=== PATIENT | male | born 1990 | race Caucasian/White ===

== ENCOUNTER 2017-02-14 23:07 | Emergency (ER) | payer OTHER ==
[~2017-02-14] VITALS: Ht 210.8 cm; Wt 60.9 kg
[~2017-02-14 23:07] MED LIST: ADDERALL20 MG PO; ALPRAZOLAM0.5 MG PO; SEROQUEL100 MG PO; SEROQUEL200 MG PO
[2017-02-15] MEDS ORDERED: ATARAX,VISTARIL25 MG PO (00:15)
[2017-02-15] MEDS ORDERED: PROMETHAZINE HC25 M1 PO (00:15)
[2017-02-15] MEDS ORDERED: SEROQUEL300 MG PO (00:15)
[2017-02-15] MEDS ORDERED: DEPAKOTE500 MG PO (00:15)
[2017-02-15 00:35] VITALS: BP 105/69
== END 2017-02-15 00:37 | disposition home or self-care (01) ==
LOC: EXP 23:07 → EME 23:07 → EXP 02-15 00:37
DX: R11.2 Nausea with vomiting, unspecified (principal); R30.0 Dysuria; F41.9 Anxiety disorder, unspecified; R36.9 Urethral discharge, unspecified; Z88.1 Allergy status to other antibiotic agents; F17.200 Nicotine dependence, unspecified, uncomplicated
CPT/HCPCS: 99281; 99283; Q0177

== ENCOUNTER 2017-02-22 03:06 | Emergency (ER) | payer OTHER ==
[~2017-02-22] VITALS: Ht 185.4 cm; Wt 61.6 kg
[~2017-02-22 03:06] MED LIST changes: +ATARAX,VISTARIL25 MG PO; +DEPAKOTE500 MG PO; +PROMETHAZINE HC25 M1 PO; +SEROQUEL300 MG PO
[2017-02-22 03:57] LABS: COLOR BLOODY ((YELLOW))
[2017-02-22 03:58] LABS: BILIRUBIN MODERATE; BLOOD LARGE; GLUCOSE (STRIP) NEGATIVE; KETONES TRACE
[2017-02-22 03:59] LABS: ADD MIUA? YES; LEUKOCYTES MODERATE; PROTEIN (STRIP) 30; UROBILINOGEN 0.2 MG/DL (0.2-1.0)
[2017-02-22 04:00] LABS: NITRITE NEGATIVE; RED BLOOD CELLS TNTC /HPF (0-5); UCUL ADDED? YES
[2017-02-22 04:03] LABS: HEMATOCRIT 41.2 % (38.0-50.0); MCH 30.3 PG (29.0-34.0); MCHC 32.8 G/DL (30.0-36.0); MCV 92.6 FL (86-99); MEAN PLAT.VOLUME 9.3 uM^3 (9.0-12.4); PLATELET COUNT 222 K/uL (156-360); RBC DIS.WIDTH-CV 11.9 % (11.8-14.6); RBC DIS.WIDTH-SD 40.4 % (39-53); RED BLOOD COUNT 4.45 M/uL (4.00-5.50)
[2017-02-22 04:11] LABS: ICTOTEST NEGATIVE
[2017-02-22 04:14] LABS: CHLORIDE 106 mEq/L (99-109); POTASSIUM 4.1 mEq/L (3.7-5.4); SODIUM 141 mEq/L (136-147)
[2017-02-22 04:15] LABS: GLUCOSE 94 mg/dL (70-99)
[2017-02-22 04:17] LABS: ANION GAP 9 MEQ/L (2-14)
[2017-02-22 04:19] LABS: GFR ESTIMATE (CALCULATED) > 59 mL/min/
[2017-02-22 04:20] LABS: UREA NITROGEN (BUN) 7 mg/dL (9-23)
[2017-02-22] MEDS ORDERED: CIPROFLOXA500 MG/5 M PO (05:05)
[2017-02-22 05:07] LABS: CREATINE KINASE 77 IU/L (1-294)
[2017-02-22 05:16] VITALS: BP 115/65
== END 2017-02-22 05:17 | disposition home or self-care (01) ==
LOC: EME 03:06
PROVIDERS: Emergency Medicine
DX: N30.01 Acute cystitis with hematuria (principal); R05 Cough; F17.200 Nicotine dependence, unspecified, uncomplicated; Z88.1 Allergy status to other antibiotic agents
CPT/HCPCS: 71020; 74176; 80048; 81003; 82550; 85027; 87086; 99281; 99284

== ENCOUNTER 2017-03-23 15:54 | Emergency (ER) | payer OTHER ==
[~2017-03-23] VITALS: Ht 185.4 cm; Wt 60.9 kg
[~2017-03-23 15:54] MED LIST changes: +CIPROFLOXA500 MG/5 M PO
[2017-03-23 15:58] VITALS: BP 112/84
== END 2017-03-23 16:46 | disposition left against medical advice (07) ==
LOC: EME 15:54
DX: F41.9 Anxiety disorder, unspecified (principal); F20.9 Schizophrenia, unspecified; Z59.0 Homelessness; Z88.0 Allergy status to penicillin; F17.200 Nicotine dependence, unspecified, uncomplicated
CPT/HCPCS: 99281; 99282

== ENCOUNTER 2017-03-24 13:36 | Emergency (ER) | payer OTHER ==
[~2017-03-24] VITALS: Ht 185.4 cm; Wt 64.1 kg
[2017-03-24 14:26] LABS: HEMATOCRIT 43.5 % (38.0-50.0); MCH 29.6 PG (29.0-34.0); MCHC 33.1 G/DL (30.0-36.0); MCV 89.3 FL (86-99); MEAN PLAT.VOLUME 9.6 uM^3 (9.0-12.4); PLATELET COUNT 210 K/uL (156-360); RBC DIS.WIDTH-CV 12.3 % (11.8-14.6); RBC DIS.WIDTH-SD 40.5 % (39-53); RED BLOOD COUNT 4.87 M/uL (4.00-5.50); WHITE BLOOD COUNT 5.2 K/uL (4.1-10.2)
[2017-03-24 14:34] LABS: CHLORIDE 107 mEq/L (99-109); POTASSIUM 3.1 mEq/L (3.7-5.4); SODIUM 142 mEq/L (136-147)
[2017-03-24 14:36] LABS: GLUCOSE 81 mg/dL (70-99)
[2017-03-24 14:37] LABS: ANION GAP 17 MEQ/L (2-14)
[2017-03-24 14:39] LABS: SERUM ETHYL ALCOHOL 181 mg/dL
[2017-03-24 14:40] LABS: GFR ESTIMATE (CALCULATED) > 59 mL/min/
[2017-03-24 14:41] LABS: UREA NITROGEN (BUN) 9 mg/dL (9-23)
[2017-03-24 15:27] LABS: THC CANNABINOIDS PRESUMPTIVE POSITIVE (50 ng/mL)
[2017-03-24 15:28] LABS: ADD MEDTOX COMMENT Y; AMPHETAMINE NEGATIVE (500 ng/mL); BARBITURATES NEGATIVE (200 ng/mL); BENZODIAZEPINES NEGATIVE (150 ng/mL); COCAINE NEGATIVE (150 ng/mL); INTERNAL CONTROLS VALID? YES; METHADONE NEGATIVE (200 ng/mL); METHAMPHETAMINE NEGATIVE (500 ng/mL); OPIATES (MORPHINE) NEGATIVE (100 ng/mL); OXYCODONE NEGATIVE (100 ng/mL); PHENCYCLIDINE NEGATIVE (25 ng/mL); PROPOXYPHENE NEGATIVE (300 ng/mL); TRICYCLIC ANTIDEPRESSANTS NEGATIVE (300 ng/mL)
[2017-03-24 18:45] VITALS: BP 126/86
== END 2017-03-24 18:58 | disposition home or self-care (01) ==
LOC: EME 13:36
PROVIDERS: Emergency Medicine
DX: F32.9 Major depressive disorder, single episode, unspecified (principal); F10.129 Alcohol abuse with intoxication, unspecified; Y90.6 Blood alcohol level of 120-199 mg/100 ml; F60.2 Antisocial personality disorder; F43.10 Post-traumatic stress disorder, unspecified; Z04.6 Encounter for general psychiatric examination, requested by authority; Z88.8 Allergy status to other drugs, medicaments and biological substances; F17.200 Nicotine dependence, unspecified, uncomplicated
CPT/HCPCS: 80048; 84999; 85027; 90837; 99281; 99284; G0480

== ENCOUNTER 2017-06-12 00:17 | Emergency (ER) | payer OTHER ==
[~2017-06-12] VITALS: Ht 185.4 cm; Wt 61.7 kg
[2017-06-12 00:50] LABS: HEMATOCRIT 42.9 % (38.0-50.0); MCHC 32.6 G/DL (30.0-36.0); MCV 95.1 FL (86-99); RED BLOOD COUNT 4.51 M/uL (4.00-5.50); WHITE BLOOD COUNT 6.7 K/uL (4.1-10.2)
[2017-06-12 00:59] LABS: CHLORIDE 104 mEq/L (99-109); POTASSIUM 3.8 mEq/L (3.7-5.4); SODIUM 141 mEq/L (136-147)
[2017-06-12 01:01] LABS: GLUCOSE 81 mg/dL (70-99)
[2017-06-12 01:02] LABS: ANION GAP 9 MEQ/L (2-14)
[2017-06-12 01:04] LABS: SERUM ETHYL ALCOHOL < 10 mg/dL
[2017-06-12 01:05] LABS: GFR ESTIMATE (CALCULATED) > 59 mL/min/ (58.99-99999)
[2017-06-12 01:06] LABS: UREA NITROGEN (BUN) 10 mg/dL (9-23)
[2017-06-12 01:26] LABS: AMPHETAMINE NEGATIVE (500 ng/mL); BARBITURATES NEGATIVE (200 ng/mL); BENZODIAZEPINES PRESUMPTIVE POSITIVE (150 ng/mL); COCAINE NEGATIVE (150 ng/mL); INTERNAL CONTROLS VALID? YES; METHADONE NEGATIVE (200 ng/mL); METHAMPHETAMINE NEGATIVE (500 ng/mL); OPIATES (MORPHINE) NEGATIVE (100 ng/mL); OXYCODONE NEGATIVE (100 ng/mL); PHENCYCLIDINE NEGATIVE (25 ng/mL); PROPOXYPHENE NEGATIVE (300 ng/mL); THC CANNABINOIDS PRESUMPTIVE POSITIVE (50 ng/mL); TRICYCLIC ANTIDEPRESSANTS NEGATIVE (300 ng/mL)
[2017-06-12 01:27] LABS: ADD MEDTOX COMMENT Y
[2017-06-12 01:35] LABS: MEAN PLAT.VOLUME 10.2 uM^3 (9.0-12.4); PLAT.SUFFICIENCY ADEQUATE; PLATELET COUNT 238 K/uL (156-360)
[2017-06-12 04:55] VITALS: BP 100/58
[2017-06-12 05:16] LABS: BENZODIAZEPINES, URINE SCREEN POSITIVE (200 ng/mL)
== END 2017-06-12 04:55 | disposition home or self-care (01) ==
LOC: EME 00:17
DX: F31.12 Bipolar disorder, current episode manic without psychotic features, moderate (principal); F20.9 Schizophrenia, unspecified; F63.9 Impulse disorder, unspecified; F43.10 Post-traumatic stress disorder, unspecified; Z88.0 Allergy status to penicillin; Z88.8 Allergy status to other drugs, medicaments and biological substances; F17.200 Nicotine dependence, unspecified, uncomplicated
CPT/HCPCS: 80048; 84999; 85027; 90839; G0480

== ENCOUNTER 2017-06-14 01:36 | Emergency (ER) | payer OTHER ==
[~2017-06-14] VITALS: Ht 185.4 cm; Wt 60.5 kg
[2017-06-14 04:20] LABS: EOSINOPHIL (%) 1.6 % (0-5); EOSINOPHIL COUNT 0.1 K/uL (0-0.3); HEMATOCRIT 39.2 % (38.0-50.0); IMMATURE GRANULOCYTE (%) 0.2 % (0.0-0.7); INSTRUMENT ABS NEUTROPHIL CT 3.3 K/uL; LYMPHOCYTE COUNT 1.8 K/uL (1.0-2.8); MCH 30.9 PG (29.0-34.0); MCHC 32.9 G/DL (30.0-36.0); MCV 93.8 FL (86-99); MEAN PLAT.VOLUME 10.3 uM^3 (9.0-12.4); MONOCYTE (%) 8.5 % (3-12); MONOCYTE COUNT 0.5 K/uL (0-0.8); NEUTROPHIL (%) 57.3 % (45-76); NEUTROPHIL COUNT 3.3 K/uL (1.8-6.4); PLATELET COUNT 209 K/uL (156-360); RBC DIS.WIDTH-CV 12.2 % (11.8-14.6); RBC DIS.WIDTH-SD 42.3 % (39-53); RED BLOOD COUNT 4.18 M/uL (4.00-5.50); WHITE BLOOD COUNT 5.8 K/uL (4.1-10.2)
[2017-06-14 04:32] LABS: CHLORIDE 105 mEq/L (99-109)
[2017-06-14 04:33] LABS: POTASSIUM 3.6 mEq/L (3.7-5.4); SODIUM 140 mEq/L (136-147)
[2017-06-14 04:36] LABS: ANION GAP 10 MEQ/L (2-14)
[2017-06-14 04:37] LABS: SERUM ETHYL ALCOHOL < 10 mg/dL
[2017-06-14 04:38] LABS: GFR ESTIMATE (CALCULATED) > 59 mL/min/ (58.99-99999)
[2017-06-14 04:39] LABS: GLUCOSE 120 mg/dL (70-99); UREA NITROGEN (BUN) 12 mg/dL (9-23)
[2017-06-14 08:05] LABS: COCAINE NEGATIVE (150 ng/mL); PHENCYCLIDINE NEGATIVE (25 ng/mL); THC CANNABINOIDS PRESUMPTIVE POSITIVE (50 ng/mL)
[2017-06-14 08:06] LABS: AMPHETAMINE PRESUMPTIVE POSITIVE (500 ng/mL); BARBITURATES NEGATIVE (200 ng/mL); BENZODIAZEPINES PRESUMPTIVE POSITIVE (150 ng/mL); INTERNAL CONTROLS VALID? YES; METHADONE NEGATIVE (200 ng/mL); METHAMPHETAMINE NEGATIVE (500 ng/mL); OPIATES (MORPHINE) NEGATIVE (100 ng/mL); OXYCODONE NEGATIVE (100 ng/mL); PROPOXYPHENE NEGATIVE (300 ng/mL); TRICYCLIC ANTIDEPRESSANTS NEGATIVE (300 ng/mL)
[2017-06-14 08:07] LABS: ADD MEDTOX COMMENT Y
[2017-06-14 08:40] LABS: BENZODIAZEPINES, URINE SCREEN POSITIVE (200 ng/mL)
[2017-06-14 10:25] VITALS: BP 110/68
== END 2017-06-14 10:26 | disposition home or self-care (01) ==
LOC: EME 01:36
PROVIDERS: Emergency Medicine
DX: F31.9 Bipolar disorder, unspecified (principal); F41.9 Anxiety disorder, unspecified; F20.9 Schizophrenia, unspecified; F43.20 Adjustment disorder, unspecified; F60.2 Antisocial personality disorder; F63.81 Intermittent explosive disorder; F12.20 Cannabis dependence, uncomplicated; F13.20 Sedative, hypnotic or anxiolytic dependence, uncomplicated; F43.10 Post-traumatic stress disorder, unspecified; F17.200 Nicotine dependence, unspecified, uncomplicated; Z88.0 Allergy status to penicillin; Z88.8 Allergy status to other drugs, medicaments and biological substances
CPT/HCPCS: 80048; 84999; 85025; 90839; 99281; 99283; G0480

== ENCOUNTER 2017-06-21 22:06 | Emergency (ER) | payer OTHER ==
[~2017-06-21] VITALS: Ht 185.4 cm; Wt 62.7 kg
[2017-06-21 22:13] VITALS: BP 112/76
[2017-06-21 23:35] LABS: HEMATOCRIT 41.2 % (38.0-50.0); HEMOGLOBIN 13.7 G/DL (12.5-16.6); MCH 31.4 PG (29.0-34.0); MCHC 33.3 G/DL (30.0-36.0); MCV 94.5 FL (86-99); RBC DIS.WIDTH-SD 42.4 % (39-53); RED BLOOD COUNT 4.36 M/uL (4.00-5.50); WHITE BLOOD COUNT 6.5 K/uL (4.1-10.2)
[2017-06-21 23:36] LABS: AMPHETAMINE NEGATIVE (500 ng/mL); BARBITURATES NEGATIVE (200 ng/mL); BENZODIAZEPINES NEGATIVE (150 ng/mL); BUPRENORPHINE NEGATIVE (10 ng/mL); COCAINE NEGATIVE (150 ng/mL); METHADONE NEGATIVE (200 ng/mL); METHAMPHETAMINE NEGATIVE (500 ng/mL); OPIATES (MORPHINE) NEGATIVE (100 ng/mL); OXYCODONE NEGATIVE (100 ng/mL); PHENCYCLIDINE NEGATIVE (25 ng/mL); PROPOXYPHENE NEGATIVE (300 ng/mL); THC CANNABINOIDS PRESUMPTIVE POSITIVE (50 ng/mL); TRICYCLIC ANTIDEPRESSANTS NEGATIVE (300 ng/mL)
[2017-06-21 23:46] LABS: ALBUMIN 4.1 g/dL (3.2-4.8); CHLORIDE 104 mEq/L (99-109); POTASSIUM 4.1 mEq/L (3.7-5.4); SODIUM 139 mEq/L (136-147)
[2017-06-21 23:48] LABS: GLUCOSE 69 mg/dL (70-99); TOTAL PROTEIN 6.6 g/dL (6.4-8.3)
[2017-06-21 23:50] LABS: TOTAL BILIRUBIN 0.2 mg/dL (0.0-1.0)
[2017-06-21 23:51] LABS: SERUM ETHYL ALCOHOL < 10 mg/dL
[2017-06-21 23:52] LABS: ALKALINE PHOSPHATASE 63 IU/L (3-129); CREATININE 0.8 mg/dL (0.6-1.3); GFR ESTIMATE (CALCULATED) > 59 mL/min/ (58.99-99999)
[2017-06-21 23:53] LABS: AST (GOT) 15 IU/L (2-34); UREA NITROGEN (BUN) 8 mg/dL (9-23)
[2017-06-21 23:55] LABS: ALT (GPT) 9 IU/L (3-49)
[2017-06-22 00:43] LABS: PLAT.SUFFICIENCY ADEQUATE; PLATELET COUNT 199 K/uL (156-360)
== END 2017-06-22 02:04 | disposition home or self-care (01) ==
LOC: EME 22:06
PROVIDERS: Emergency Medicine
DX: F20.9 Schizophrenia, unspecified (principal); F31.9 Bipolar disorder, unspecified; F60.2 Antisocial personality disorder; R45.6 Violent behavior; R45.850 Homicidal ideations; F12.90 Cannabis use, unspecified, uncomplicated; F17.200 Nicotine dependence, unspecified, uncomplicated
CPT/HCPCS: 80053; 84999; 85027; 90839; 99281; 99285; G0480

== ENCOUNTER 2017-06-22 02:29 | Emergency (ER) | payer OTHER ==
[~2017-06-22] VITALS: Ht 185.4 cm; Wt 62.8 kg
[2017-06-22 10:20] VITALS: BP 142/70
== END 2017-06-22 10:41 | disposition home or self-care (01) ==
LOC: EME 02:29
DX: F32.9 Major depressive disorder, single episode, unspecified (principal); R45.851 Suicidal ideations; F17.200 Nicotine dependence, unspecified, uncomplicated
CPT/HCPCS: 90832; 99281; 99285; J3486

== ENCOUNTER 2017-07-05 01:56 | Inpatient (IN) | payer OTHER ==
[~2017-07-05] VITALS: Ht 185.4 cm; Wt 67.2 kg
[2017-07-05 02:21] LABS: HEMATOCRIT 43.5 % (38.0-50.0); HEMOGLOBIN 14.5 G/DL (12.5-16.6); MCH 31.3 PG (29.0-34.0); MCHC 33.3 G/DL (30.0-36.0); RBC DIS.WIDTH-SD 41.9 % (39-53); RED BLOOD COUNT 4.63 M/uL (4.00-5.50); WHITE BLOOD COUNT 8.9 K/uL (4.1-10.2)
[2017-07-05 02:30] LABS: CHLORIDE 104 mEq/L (99-109); POTASSIUM 3.6 mEq/L (3.7-5.4); SODIUM 139 mEq/L (136-147)
[2017-07-05 02:32] LABS: GLUCOSE 108 mg/dL (70-99)
[2017-07-05 02:35] LABS: SERUM ETHYL ALCOHOL < 10 mg/dL
[2017-07-05 02:36] LABS: CREATININE 0.8 mg/dL (0.6-1.3); GFR ESTIMATE (CALCULATED) > 59 mL/min/ (58.99-99999)
[2017-07-05 02:37] LABS: UREA NITROGEN (BUN) 7 mg/dL (9-23)
[2017-07-05 03:20] LABS: PLAT.SUFFICIENCY ADEQUATE; PLATELET COUNT 240 K/uL (156-360)
[2017-07-05 05:12] VITALS: BP 89/64
[2017-07-05 07:26] VITALS: BP 95/53
[2017-07-05] MEDS ORDERED: VISTARIL50 MG PO (11:41)
[2017-07-05] MEDS ORDERED: DEPAKOTE ER500 MG PO (11:42)
[2017-07-05] MEDS ORDERED: DEPAKOTE ER250 MG PO (11:42)
[2017-07-05] MEDS ORDERED: SEROQUEL300 MG PO (11:42)
[2017-07-05] MEDS ORDERED: MIRALAX17 GM PO (11:43)
[2017-07-05] MEDS ORDERED: BUSPAR7.5 MG PO (11:43)
[2017-07-05] MEDS ORDERED: ADDERALL10 MG PO (11:44)
[2017-07-05 12:34] LABS: APPEARANCE CLEAR ((CLEAR)); BILIRUBIN NEGATIVE; BLOOD NEGATIVE; COLOR YELLOW ((YELLOW)); GLUCOSE (STRIP) NEGATIVE; KETONES NEGATIVE; LEUKOCYTES NEGATIVE; NITRITE NEGATIVE; PROTEIN (STRIP) NEGATIVE; SPECIFIC GRAVITY 1.018 (1.000-1.030); UCUL ADDED? NO; UROBILINOGEN 0.2 MG/DL (0.2-1.0)
[2017-07-05 16:04] VITALS: BP 130/85
[2017-07-05 16:27] LABS: BENZODIAZEPINES, URINE SCREEN Negative (200 ng/mL)
[2017-07-06 07:58] VITALS: BP 104/53
[2017-07-06] MEDS ORDERED: DEPAKOTE250 MG PO (09:37)
[2017-07-06] MEDS ORDERED: DEPAKOTE500 MG PO (09:37)
[2017-07-06] MEDS ORDERED: COGENTIN0.5 MG PO (09:38)
== END 2017-07-06 11:24 | disposition home or self-care (01) | DRG 885 ==
LOC: EME 01:56 → 1WEST 03:49 → EDOF 03:49 → ENRESERV 04:36 → 1WEST 04:42
PROVIDERS: Emergency Medicine
DX: F31.9 Bipolar disorder, unspecified (principal); F63.81 Intermittent explosive disorder; F60.2 Antisocial personality disorder; F12.20 Cannabis dependence, uncomplicated; F41.0 Panic disorder [episodic paroxysmal anxiety]; F20.9 Schizophrenia, unspecified; Z76.5 Malingerer [conscious simulation]; F43.10 Post-traumatic stress disorder, unspecified; F17.200 Nicotine dependence, unspecified, uncomplicated; R63.0 Anorexia; Z68.1 Body mass index [BMI] 19.9 or less, adult; Z65.3 Problems related to other legal circumstances; Z81.8 Family history of other mental and behavioral disorders
CPT/HCPCS: 80048; 80164; 80306 90; 81003; 85027; 90837; 97165 GO; 99281; 99285; G0480; Q0177

== ENCOUNTER 2017-07-16 13:44 | Emergency (ER) | payer OTHER ==
[~2017-07-16] VITALS: Ht 185.4 cm; Wt 58.4 kg
[~2017-07-16 13:44] MED LIST changes: +ADDERALL10 MG PO; +BUSPAR7.5 MG PO; +COGENTIN0.5 MG PO; +DEPAKOTE ER250 MG PO; +DEPAKOTE ER500 MG PO; +DEPAKOTE250 MG PO; +MIRALAX17 GM PO; +VISTARIL50 MG PO
[2017-07-16 14:57] LABS: BASOPHIL (%) 0.2 % (0-1); EOSINOPHIL (%) 0.1 % (0-5); HEMATOCRIT 41.8 % (38.0-50.0); IMMATURE GRANULOCYTE (%) 0.3 % (0.0-0.7); LYMPHOCYTE COUNT 0.9 K/uL (1.0-2.8); MCH 30.9 PG (29.0-34.0); MCHC 33.5 G/DL (30.0-36.0); MCV 92.3 FL (86-99); MONOCYTE (%) 6.8 % (3-12); MONOCYTE COUNT 0.6 K/uL (0-0.8); NEUTROPHIL (%) 82.6 % (45-76); NEUTROPHIL COUNT 7.1 K/uL (1.8-6.4); PLATELET COUNT 265 K/uL (156-360); RBC DIS.WIDTH-CV 11.8 % (11.8-14.6); RBC DIS.WIDTH-SD 40.3 % (39-53); RED BLOOD COUNT 4.53 M/uL (4.00-5.50); WHITE BLOOD COUNT 8.6 K/uL (4.1-10.2)
[2017-07-16 15:05] LABS: CHLORIDE 107 mEq/L (99-109); POTASSIUM 3.6 mEq/L (3.7-5.4); SODIUM 138 mEq/L (136-147)
[2017-07-16 15:07] LABS: GLUCOSE 100 mg/dL (70-99)
[2017-07-16 15:10] LABS: SERUM ETHYL ALCOHOL < 10 mg/dL
[2017-07-16 15:11] LABS: CREATININE 0.8 mg/dL (0.6-1.3); GFR ESTIMATE (CALCULATED) > 59 mL/min/ (58.99-99999)
[2017-07-16 15:12] LABS: UREA NITROGEN (BUN) 6 mg/dL (9-23)
[2017-07-16 15:53] VITALS: BP 121/70
== END 2017-07-16 15:58 | disposition home or self-care (01) ==
LOC: EME 13:44
PROVIDERS: Emergency Medicine
DX: F60.2 Antisocial personality disorder (principal); F31.9 Bipolar disorder, unspecified; F43.10 Post-traumatic stress disorder, unspecified; F20.9 Schizophrenia, unspecified; Z88.0 Allergy status to penicillin; F17.200 Nicotine dependence, unspecified, uncomplicated
CPT/HCPCS: 80048; 85025; 90837; G0480

== ENCOUNTER 2017-07-18 17:22 | Inpatient (IN) | payer OTHER ==
[~2017-07-18] VITALS: Ht 175.3 cm; Wt 56.2 kg
[2017-07-18 17:55] LABS: HEMATOCRIT 42.9 % (38.0-50.0); HEMOGLOBIN 14.2 G/DL (12.5-16.6); MCH 30.9 PG (29.0-34.0); MCHC 33.1 G/DL (30.0-36.0); MCV 93.3 FL (86-99); RBC DIS.WIDTH-CV 11.9 % (11.8-14.6); RBC DIS.WIDTH-SD 41.1 % (39-53); WHITE BLOOD COUNT 7.2 K/uL (4.1-10.2)
[2017-07-18 18:17] LABS: CHLORIDE 105 mEq/L (99-109); POTASSIUM 3.6 mEq/L (3.7-5.4); SODIUM 139 mEq/L (136-147)
[2017-07-18 18:19] LABS: GLUCOSE 73 mg/dL (70-99)
[2017-07-18 18:22] LABS: SERUM ETHYL ALCOHOL < 10 mg/dL
[2017-07-18 18:23] LABS: CREATININE 0.8 mg/dL (0.6-1.3); GFR ESTIMATE (CALCULATED) > 59 mL/min/ (58.99-99999)
[2017-07-18 18:25] LABS: UREA NITROGEN (BUN) 11 mg/dL (9-23)
[2017-07-18 18:26] LABS: ACETAMINOPHEN (TYLENOL) < 10 mcg/mL (10-30); SALICYLATE < 5.0 MG/DL (15-30)
[2017-07-18] MEDS ORDERED: MARINOL5 MG PO (18:38)
[2017-07-18] MEDS ORDERED: PROMETHAZINE HC25 M1 PO (18:39)
[2017-07-18 18:58] LABS: PLAT.SUFFICIENCY ADEQUATE
[2017-07-18 19:04] LABS: PLATELET COUNT 247 K/uL (156-360)
[2017-07-19 00:52] LABS: VALPROIC ACID (DEPAKOTE) < 10.0 MCG/ML (50-100)
[2017-07-19 01:18] VITALS: BP 92/52
== END 2017-07-19 12:21 | disposition home or self-care (01) | DRG 883 ==
LOC: EME 17:22 → 1WEST 19:59 → EDOF 19:59 → ENRESERV 07-19 00:02 → 1WEST 07-19 01:28
PROVIDERS: Emergency Medicine
DX: F63.81 Intermittent explosive disorder (principal); R45.851 Suicidal ideations; Z68.1 Body mass index [BMI] 19.9 or less, adult; F05 Delirium due to known physiological condition; F19.94 Other psychoactive substance use, unspecified with psychoactive substance-induced mood disorder; F60.2 Antisocial personality disorder; Z76.5 Malingerer [conscious simulation]; F43.10 Post-traumatic stress disorder, unspecified; F41.0 Panic disorder [episodic paroxysmal anxiety]; R63.0 Anorexia; F32.9 Major depressive disorder, single episode, unspecified; F17.210 Nicotine dependence, cigarettes, uncomplicated; F12.90 Cannabis use, unspecified, uncomplicated; S09.90XA Unspecified injury of head, initial encounter; X78.8XXA Intentional self-harm by other sharp object, initial encounter; Y92.9 Unspecified place or not applicable; R45.850 Homicidal ideations; Z91.14 Patient's other noncompliance with medication regimen; Z91.19 Patient's noncompliance with other medical treatment and regimen
CPT/HCPCS: 80048; 80164; 85027; 90837; G0480; J1200; J2060; Q0177

== ENCOUNTER 2017-07-31 11:21 | Emergency (ER) | payer OTHER ==
[~2017-07-31] VITALS: Ht 185.4 cm; Wt 62.0 kg
[~2017-07-31 11:21] MED LIST changes: +MARINOL5 MG PO
[2017-07-31 11:36] VITALS: BP 97/67
[2017-07-31 13:17] LABS: APPEARANCE CLEAR ((CLEAR)); BILIRUBIN NEGATIVE; BLOOD NEGATIVE; COLOR YELLOW ((YELLOW)); GLUCOSE (STRIP) NEGATIVE; KETONES NEGATIVE; LEUKOCYTES NEGATIVE; NITRITE NEGATIVE; PROTEIN (STRIP) 100; SPECIFIC GRAVITY 1.015 (1.000-1.030); UROBILINOGEN 0.2 MG/DL (0.2-1.0)
[2017-07-31 13:32] LABS: BACTERIA NONE SEEN /HPF; EPITHELIAL CELLS NONE SEEN /HPF; HYALINE CASTS 0-5 /LPF; MUCUS TRACE /LPF; RED BLOOD CELLS 0-5 /HPF (0-5); UCUL ADDED? NO; WHITE BLOOD CELLS 0-5 /HPF (0-5)
[2017-07-31 14:10] LABS: SOURCE URINE
[2017-08-02 13:35] LABS: CHLAMYDIA TRACHOMATIS NEGATIVE; NEISSERIA GONORRHOEAE NEGATIVE
== END 2017-07-31 14:22 | disposition home or self-care (01) ==
LOC: EME 11:21
PROVIDERS: Emergency Medicine
DX: R30.0 Dysuria (principal); F20.9 Schizophrenia, unspecified; F17.200 Nicotine dependence, unspecified, uncomplicated; Z88.0 Allergy status to penicillin; Z88.8 Allergy status to other drugs, medicaments and biological substances
CPT/HCPCS: 81003; 87491; 87591; 99281; 99282